=== PATIENT | female | born 2005 ===

== ENCOUNTER 2023-01-09 15:53 | Inpatient (IN) ==
[2023-01-09] MEDS ORDERED: Al Hydrox/Mg Hydrox/Simet LIQ 30 ML UDC PO PRN (18:02)
[2023-01-09] MEDS: Nicotine GUM 2MG FRUIT FLAVOR PO PRN (20:07)
[2023-01-10] MEDS: Nicotine GUM 2MG FRUIT FLAVOR PO PRN ×7 (01:23→22:03)
[2023-01-10] MEDS: Vitamin THERAPEUTIC TAB PO SCH (08:02)
[2023-01-10] MEDS: [UNRECOGNIZED DRUG - OTHER] PO SCH (18:38)
[2023-01-10] MEDS: ETHINYL ESTRADIOL PO SCH (18:38)
[2023-01-11] MEDS: Nicotine GUM 2MG FRUIT FLAVOR PO PRN ×7 (03:21→18:42)
[2023-01-11] MEDS: Vitamin THERAPEUTIC TAB PO SCH (08:33)
[2023-01-11 08:51] LABS: HDL Cholesterol 55.3 mg/dL
[2023-01-11 09:19] LABS: Free T3 4.2 pg/mL (2.5-3.9)
[2023-01-11 09:20] LABS: Free T4 0.83 ng/dL (0.61-1.12)
[2023-01-11] MEDS: [UNRECOGNIZED DRUG - OTHER] PO SCH (11:47)
[2023-01-11] MEDS: ETHINYL ESTRADIOL PO SCH (11:47)
[2023-01-12] MEDS: Nicotine GUM 2MG FRUIT FLAVOR PO PRN ×5 (04:07→18:19)
[2023-01-12] MEDS: Vitamin THERAPEUTIC TAB PO SCH (09:49)
[2023-01-12] MEDS: ETHINYL ESTRADIOL PO SCH (10:06)
[2023-01-12] MEDS: [UNRECOGNIZED DRUG - OTHER] PO SCH (10:06)
[2023-01-13] MEDS: Nicotine GUM 2MG FRUIT FLAVOR PO PRN ×7 (02:04→21:10)
[2023-01-13] MEDS: Vitamin THERAPEUTIC TAB PO SCH (08:41)
[2023-01-13] MEDS: [UNRECOGNIZED DRUG - OTHER] PO SCH (08:42)
[2023-01-13] MEDS: ETHINYL ESTRADIOL PO SCH (08:42)
[2023-01-14] MEDS: Nicotine GUM 2MG FRUIT FLAVOR PO PRN ×5 (01:44→19:25)
[2023-01-14] MEDS: ETHINYL ESTRADIOL PO SCH (08:10)
[2023-01-14] MEDS: [UNRECOGNIZED DRUG - OTHER] PO SCH (08:10)
[2023-01-14] MEDS: Vitamin THERAPEUTIC TAB PO SCH (08:10)
[2023-01-15] MEDS: Nicotine GUM 2MG FRUIT FLAVOR PO PRN ×4 (00:02→10:11)
[2023-01-15] MEDS: [UNRECOGNIZED DRUG - OTHER] PO SCH (07:44)
[2023-01-15] MEDS: ETHINYL ESTRADIOL PO SCH (07:44)
[2023-01-15] MEDS: Vitamin THERAPEUTIC TAB PO SCH (07:44)
== END 2023-01-15 11:13 | disposition home or self-care (01) | DRG 752 ==
LOC: BSU 15:53
PROVIDERS: ADMIT Psychiatry & Neurology Psychiatry; ATTEND Psychiatry & Neurology Psychiatry